=== PATIENT | male | born 2000 | race Two or more races ===

== ENCOUNTER 2020-06-25 21:08 | Emergency (ER) | payer OTHER ==
[2020-06-25 21:40] VITALS: BP 121/75; PULSE 98; TEMP 98.1; BMI 23.5
[2020-06-25] MEDS ORDERED: IBUPROFEN 600 MG TABLET (FP) PO ONE ×2 (21:51→22:02)
--- NOTE | 2020-06-25 21:51 | PDOC ---
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 Patient is in the ED complaining of left elbow pain with decreased range of motion as well as left fourth finger pain. Patient denies head trauma loss of consciousness and was able to ambulate without difficulty after the event. Patient states the pain is 7 out of 10 worse with range of motion. Pt otherwise denies: fevers, chills, syncope, lightheadedness, dizziness, headaches, neck pain, chest pain, shortness of breath, palpitations, back pain, abdominal pain, nausea, vomiting, diarrhea, constipation. Past History - Medical History Allergies/Adverse Reactions: Allergies Allergy/AdvReac Type Severity Reaction Status Date / Time No Known Allergies Allergy Verified 06/25/20 21:54 Home Medications: Ambulatory Orders Ibuprofen [Ibu] 600 mg PO TID 10 Days #30 tablet 06/25/20 COPD: No - Psycho-Social/Smoking History Smoking History: Never smoked - Substance Abuse Hx (Audit-C & DAST Scrn) How often the patient has a drink containing alcohol: Never Score: In Men: 4 or > Positive; In Women: 3 or > Positive: 0 Screen Result (Pos requires Nsg. Audit-10AR): Negative In the last yr the pt used illegal drug/Rx for NonMed reason: No Score: Yes response is considered Positive: 0 Screen Result (Positive result requires Nsg. DAST-10): Negative *Physical Exam - Vital Signs Last Vital Signs Temp Pulse Resp BP Pulse Ox 98.1 F 98 H 19 121/75 98 06/25/20 21:21 06/25/20 21:21 06/25/20 21:21 06/25/20 21:21 06/25/20 21:21 - Physical Exam 06/25/20 21:49 Gen: AAOx 3, no acute distress, comfortable, no signs of respiratory distress HENT: atraumatic, normocephalic with no laceration or contusion. Nasal mucosa without erythema. Oropharynx without erythema or exudates. Mucous membranes moist. EYES: PERRL, EOM intact, conjunctiva pink NECK: supple; trachea midline; no JVD, no lymphadenopathy, or thyromegaly CV: RRR no murmurs, gallops, or rubs. CHEST: CTA b/l no wheezing, rales or rhonchi ABD: +BS/ND. no TTP; soft, no rebound, no guarding EXTREMITY: no cyanosis or erythema. 2+ dorsalis pedis, posterior tibial, and radial pulse. SKIN: no rash, warm and dry, no diaphoresis HEME: no purpura or ecchymosis NEURO: normal speech, CN II-XII intact, sensation intact, normal gait, no cerebellar deficits MS: 5/5 strength in all extremities, FROM intact in all extremities except left upper extremity Left upper extremity: Swelling and tenderness to palpation at the lateral epicondyle with decreased range of motion to flexion and extension patient's arm held in 45 degrees extension. Sensation intact to light touch 2+ radial pulse tender to palpation to the fourth digit with full range of motion opposition okay sign intact. Able to flex at the shoulder without difficulty. ED Treatment Course - RADIOLOGY Radiology Studies Ordered: Category Date Time Status ELBOW-LEFT [RAD] Stat Radiology 06/25/20 21:46 Ordered FINGER(S) LEFT [RAD] Stat Radiology 06/25/20 21:46 Ordered Medical Decision Making - Medical Decision Making 06/25/20 21:50 20-year-old male planing of left elbow and left fourth finger pain Vital signs stable Will obtain x-rays and give ibuprofen Will reassess based on result X-rays negative for any acute findings Patient's elbow wrapped with Alfonso bandage Rice instructions given Patient discharged with ibuprofen Pt appears well and is safe and stable for discharge with strict return precautions including signs and symptoms requring immediate return to the ED Supportive care instructions explained and given to pt. Reasons to return emergently to ER explained and given. Importance of follow up with PMD and other specialists as indicated stressed to pt. Pt verbalized understanding of instructions. Pt to follow up with PMD in 2 days. Discharge - Discharge Information Problems reviewed: Yes Clinical Impression/Diagnosis: Elbow pain, left Condition: Stable Disposition: HOME - Additional Discharge Information Prescriptions: Ibuprofen [Ibu] 600 mg PO TID 10 Days #30 tablet - Follow up/Referral Referrals: ON STAFF,NOT [Primary Care Provider] - - Patient Discharge Instructions Patient Printed Discharge Instructions: DI for Elbow Pain - Post Discharge Activity
== END 2020-06-25 22:25 | disposition home or self-care (01) ==
LOC: JERFT 21:08
DX: M25.522 Pain in left elbow (principal)
CPT/HCPCS: 73070-TC-LT-FY; 73140-TC-LT-FY; 99284-25